=== PATIENT | male | born 1990 | race African-American/Black ===

== ENCOUNTER 2021-03-30 15:33 | Emergency (ER) | payer OTHER ==
[~2021-03-30] VITALS: Ht 190.5 cm; Wt 102.1 kg
[~2021-03-30 15:33] MED LIST: BACTRIM DS TAB1 EACH PO; KEFLEX500 MG PO; NOHOMEMEDICATIONS; NORCO 5-325 TA1 EACH PO; ULTRAM 50MG TAB50 MG PO
[2021-03-30 16:33] VITALS: BP 116/78
== END 2021-03-30 17:27 | disposition home or self-care (01) ==
LOC: ER 15:33
DX: R51.9 Headache, unspecified (principal); Z20.822 Contact with and (suspected) exposure to COVID-19; R22.41 Localized swelling, mass and lump, right lower limb; R22.42 Localized swelling, mass and lump, left lower limb

== ENCOUNTER 2021-09-14 10:00 | Emergency (ER) | payer BC ==
[~2021-09-14] VITALS: Ht 190.5 cm; Wt 95.3 kg
[2021-09-14 10:21] VITALS: BP 123/77
== END 2021-09-14 11:55 | disposition home or self-care (01) ==
LOC: ER 10:00
DX: J06.9 Acute upper respiratory infection, unspecified (principal); Z20.822 Contact with and (suspected) exposure to COVID-19